=== PATIENT | male | born 1995 | race Caucasian/White ===

== ENCOUNTER 2017-05-12 17:10 | Emergency (ER) | payer SELFPAY ==
[2017-05-12] MEDS ORDERED: Ondansetron ODT 4 MG TAB ONE (17:33)
== END 2017-05-12 17:51 | disposition home or self-care (01) ==
LOC: MADERS 17:10
DX: K52.9 Noninfective gastroenteritis and colitis, unspecified (principal); F17.210 Nicotine dependence, cigarettes, uncomplicated
CPT/HCPCS: 99283; Q0162

== ENCOUNTER 2017-08-24 16:23 | Emergency (ER) | payer OTHER, SELFPAY ==
[2017-08-24 17:00] LABS: Bilirubin Negative (Negative); Blood, Urine Negative (Negative); Glucose, Urine (Dipstick) Negative (Negative); Leukocyte Negative (Negative); Nitrite Negative (Negative); Protein, Urine (Dipstick) Negative (Neg-Trace); Urobilinogen 0.2 mg/dL (0.2-1.0)
[2017-08-24 17:12] LABS: Clarity Hazy (Clear); Specific Gravity, Urine 1.031 (1.002-1.036)
== END 2017-08-24 17:20 | disposition home or self-care (01) ==
LOC: MADERS 16:23
DX: R11.10 Vomiting, unspecified (principal); G43.109 Migraine with aura, not intractable, without status migrainosus; F17.210 Nicotine dependence, cigarettes, uncomplicated
CPT/HCPCS: 81003; 99284

== ENCOUNTER 2018-01-11 09:31 | Emergency (ER) | payer OTHER ==
[2018-01-11] MEDS ORDERED: Ondansetron ODT 4 MG TAB ONE (09:46)
== END 2018-01-11 09:55 | disposition home or self-care (01) ==
LOC: MADERS 09:31
DX: R51 Headache (principal); F17.210 Nicotine dependence, cigarettes, uncomplicated
CPT/HCPCS: 99283; Q0162

== ENCOUNTER 2018-01-23 10:06 | Emergency (ER) | payer OTHER ==
[2018-01-23] MEDS ORDERED: Benzonatate 100 MG CAP ONE ×2 (10:27→10:28)
[2018-01-23] MEDS ORDERED: Ondansetron ODT 4 MG TAB ONE (10:28)
[2018-01-23] MEDS ORDERED: AMOXicillin 250 MG CAP ONE (10:28)
[2018-01-23] MEDS ORDERED: Diphenoxylate HCl/Atropine Tablet ONE (10:28)
[2018-01-23] MEDS ORDERED: Ondansetron HCl/PF 4 MG/2 ML Vial ONE (10:28)
== END 2018-01-23 10:36 | disposition home or self-care (01) ==
LOC: MADERS 10:06
DX: J02.9 Acute pharyngitis, unspecified (principal); F17.210 Nicotine dependence, cigarettes, uncomplicated
CPT/HCPCS: 99283; J2405; Q0162

== ENCOUNTER 2018-03-09 18:59 | Emergency (ER) | payer OTHER ==
--- NOTE | 2018-03-09 20:19 | RAD ---
PORTABLE CHEST: 03/09/18 HISTORY: Chest pain. Heart size and mediastinum are within normal limits. The lungs are clear of infiltrates. No significa nt bony findings. IMPRESSION: No active intrathoracic disease. POS: [facility]
[2018-03-09 20:51] LABS: #Basophils 0.1 thou/uL (0.0-0.2); #Eosinphils 0.1 thou/uL (0.0-0.7); #Lymphocytes 2.3 thou/uL (1.20-3.40); #Monocytes 0.5 thou/uL (0.11-0.59); #Neutrophils 4.4 thou/uL (1.40-6.50); %Basophils 1.2 % (0.0-1.0); %Eosinophils 1.3 % (0.0-10.0); %Lymphocytes 30.8 % (28.0-48.0); %Monocytes 7.2 % (0.0-4.0); %Neutrophils 59.4 % (31.0-61.0); Mean Corpuscular Hemoglobin 29.7 pg (25.0-35.0); Mean Corpuscular Volume 84.8 fl (77.0-87.0); Mean Platelet Volume 9.5 fL (7.4-10.4); Platelet Count 189 thou/uL (130-400); RBC Distribution Width 11.1 % (11.5-14.5); Red Blood Cell (RBC) Count 5.04 mill/uL (4.00-5.20); White Blood Cell (WBC) Count 7.3 thou/uL (4.8-10.8)
[2018-03-09 20:52] LABS: ALT (SGPT) 25 U/L (8-55); AST (SGOT) 18 U/L (5-34); Albumin 4.3 g/dL (3.5-5.0); Alkaline Phosphatase 49 U/L (Less than 750); Anion Gap 15 mmol/L (10-20); BUN (Urea Nitrogen) 20 mg/dL (8.9-20.6); Bilirubin, Total 0.4 mg/dL (0.2-1.2); Calc. Creatinine Clearance 0 mL/min (70-130); Calcium 9.4 mg/dL (7.8-10.44); Carbon Dioxide 26 mmol/L (22-29); Chloride 104 mmol/L (98-107); Estimated GFR-MDRD Greater than 90; Glucose 81 mg/dL (70-105); Potassium 3.9 mmol/L (3.5-5.1); Protein, Total 7.3 g/dL (6.0-8.3); Sodium 141 mmol/L (136-145)
[2018-03-09 20:59] LABS: CKMB 2.2 ng/mL (0-6.6); Troponin I Less than 0.010 ng/mL (< 0.028)
== END 2018-03-09 21:08 | disposition home or self-care (01) ==
LOC: MADERS 18:59
DX: K21.9 Gastro-esophageal reflux disease without esophagitis (principal); R55 Syncope and collapse; F17.210 Nicotine dependence, cigarettes, uncomplicated
CPT/HCPCS: 36415; 71045; 80053; 82553; 84484; 85025; 93005

== ENCOUNTER 2018-04-18 08:33 | Emergency (ER) | payer OTHER ==
[2018-04-18] MEDS ORDERED: Naproxen 500 MG TAB ONE (08:54)
== END 2018-04-18 09:00 | disposition home or self-care (01) ==
LOC: MADERS 08:33
DX: M54.5 Low back pain (principal)
CPT/HCPCS: 99283

== ENCOUNTER 2018-04-25 15:20 | Emergency (ER) | payer OTHER | END 2018-04-25 17:32 | disposition home or self-care (01) | LOC: MADERS 15:20 | DX: B00.1 Herpesviral vesicular dermatitis (principal); Z87.891 Personal history of nicotine dependence | CPT/HCPCS: 99282 ==

== ENCOUNTER 2018-06-02 10:48 | Emergency (ER) | payer OTHER ==
[2018-06-02] MEDS ORDERED: Naproxen 500 MG TAB ONE (11:11)
[2018-06-02] MEDS ORDERED: Acetaminophen 500 MG TAB ONE (11:11)
== END 2018-06-02 11:20 | disposition home or self-care (01) ==
LOC: MADERS 10:48
DX: S46.912A Strain of unspecified muscle, fascia and tendon at shoulder and upper arm level, left arm, initial encounter (principal); X58.XXXA Exposure to other specified factors, initial encounter
CPT/HCPCS: 99282

== ENCOUNTER 2018-06-11 08:12 | Emergency (ER) | payer OTHER ==
[2018-06-11] MEDS ORDERED: Ketorolac Tromethamine 60 MG/2 ML VIAL ONE (08:53)
== END 2018-06-11 09:10 | disposition home or self-care (01) ==
LOC: MADERS 08:12
DX: G43.909 Migraine, unspecified, not intractable, without status migrainosus (principal)
CPT/HCPCS: 96372; J1885

== ENCOUNTER 2018-06-27 11:21 | Emergency (ER) | payer OTHER ==
[2018-06-27] MEDS ORDERED: Ketorolac Tromethamine 60 MG/2 ML VIAL ONE (11:40)
[2018-06-27] MEDS ORDERED: cefTRIAXone\\ROCEPHIN 1 GM VIAL ONE (11:54)
== END 2018-06-27 11:45 | disposition home or self-care (01) ==
LOC: MADERS 11:21
DX: M79.621 Pain in right upper arm (principal)
CPT/HCPCS: 96372; J0696; J1885

== ENCOUNTER 2018-08-16 09:49 | Emergency (ER) | payer OTHER, SELFPAY | END 2018-08-16 11:46 | disposition home or self-care (01) | LOC: MADERS 09:49 | DX: T70.0XXA Otitic barotrauma, initial encounter (principal); F17.210 Nicotine dependence, cigarettes, uncomplicated | CPT/HCPCS: 99283 ==

== ENCOUNTER 2018-09-01 10:54 | Emergency (ER) | payer OTHER, SELFPAY ==
[2018-09-01] MEDS ORDERED: Ondansetron ODT 4 MG TAB ONE (11:11)
== END 2018-09-01 11:15 | disposition home or self-care (01) ==
LOC: MADERS 10:54
DX: R11.2 Nausea with vomiting, unspecified (principal); H93.19 Tinnitus, unspecified ear; F17.210 Nicotine dependence, cigarettes, uncomplicated
CPT/HCPCS: 99283; Q0162

== ENCOUNTER 2018-09-08 14:29 | Emergency (ER) | payer SELFPAY ==
[2018-09-08] MEDS ORDERED: Ondansetron ODT 4 MG TAB ONE (15:09)
[2018-09-08 15:20] LABS: #Basophils 0.1 thou/uL (0.0-0.2); #Eosinphils 0.1 thou/uL (0.0-0.7); #Lymphocytes 1.8 thou/uL (1.20-3.40); #Monocytes 0.4 thou/uL (0.11-0.59); #Neutrophils 4.9 thou/uL (1.40-6.50); %Basophils 1.4 % (0.0-1.0); %Eosinophils 2.1 % (0.0-10.0); %Lymphocytes 24.2 % (28.0-48.0); %Monocytes 5.2 % (0.0-4.0); %Neutrophils 67.2 % (31.0-61.0); Hemoglobin 15.7 g/dL (14.0-18.0); Mean Corpuscular HGB CONC 34.4 g/dL (32.0-36.0); Mean Corpuscular Hemoglobin 30.1 pg (25.0-35.0); Mean Corpuscular Volume 87.6 fL (78.0-98.0); Mean Platelet Volume 10.4 fL (7.4-10.4); Platelet Count 205 thou/uL (130-400); RBC Distribution Width 11.3 % (11.5-14.5); White Blood Cell (WBC) Count 7.3 thou/uL (4.8-10.8)
[2018-09-08 15:36] LABS: ALT (SGPT) 22 U/L (8-55); AST (SGOT) 15 U/L (5-34); Albumin 4.5 g/dL (3.5-5.0); Alkaline Phosphatase 60 U/L (Less than 750); Anion Gap 14 mmol/L (10-20); BUN (Urea Nitrogen) 19 mg/dL (8.9-20.6); Bilirubin, Total 0.4 mg/dL (0.2-1.2); Calc. Creatinine Clearance 0 mL/min (70-130); Calcium 9.7 mg/dL (7.8-10.44); Carbon Dioxide 26 mmol/L (22-29); Chloride 106 mmol/L (98-107); Estimated GFR-MDRD Greater than 90; Globulin 3.2 g/dL (2.4-3.5); Glucose 135 mg/dL (70-105); Lipase 27 U/L (8-78); Potassium 3.9 mmol/L (3.5-5.1); Protein, Total 7.7 g/dL (6.0-8.3); Sodium 142 mmol/L (136-145)
== END 2018-09-08 16:26 | disposition home or self-care (01) ==
LOC: MADERS 14:29
DX: R11.0 Nausea (principal); R10.9 Unspecified abdominal pain; F17.210 Nicotine dependence, cigarettes, uncomplicated
CPT/HCPCS: 36415; 80053; 83690; 85025; Q0162

== ENCOUNTER 2018-09-09 17:42 | Emergency (ER) | payer SELFPAY ==
[2018-09-09] MEDS ORDERED: Dicyclomine 10 MG CAP ONE (19:39)
== END 2018-09-09 19:44 | disposition home or self-care (01) ==
LOC: MADERS 17:42
DX: R10.9 Unspecified abdominal pain (principal); F17.210 Nicotine dependence, cigarettes, uncomplicated

== ENCOUNTER 2018-09-29 14:01 | Emergency (ER) | payer SELFPAY | END 2018-09-29 14:25 | disposition home or self-care (01) | LOC: MADERS 14:01 | DX: B34.9 Viral infection, unspecified (principal); F17.210 Nicotine dependence, cigarettes, uncomplicated | CPT/HCPCS: 99281 ==

== ENCOUNTER 2019-11-02 12:32 | Emergency (ER) | payer SELFPAY ==
[2019-11-02] MEDS ORDERED: Ondansetron PF 4 MG/2 ML Vial ONE (13:57)
[2019-11-02] MEDS ORDERED: Loperamide HCl 2 MG CAP ONE (13:57)
[2019-11-02] MEDS ORDERED: Ketorolac Tromethamine 30 MG/ML VIAL ONE (13:57)
== END 2019-11-02 14:58 | disposition home or self-care (01) ==
LOC: MADERS 12:32
DX: E86.0 Dehydration (principal); R11.2 Nausea with vomiting, unspecified; R19.7 Diarrhea, unspecified; F17.210 Nicotine dependence, cigarettes, uncomplicated
CPT/HCPCS: 96361; 96374; 96375; J1885; J2405

== ENCOUNTER 2020-08-09 07:51 | Emergency (ER) | payer SELFPAY ==
[2020-08-09] MEDS ORDERED: Boostrix 0.5 ML VIAL ONE (08:53)
[2020-08-09] MEDS ORDERED: Ondansetron ODT 4 MG TAB ONE (08:53)
[2020-08-09] MEDS ORDERED: Ketorolac Tromethamine 30 MG/ML VIAL ONE (08:53)
[2020-08-09 09:26] LABS: #Basophils 0.1 thou/uL (0.0-0.2); #Eosinphils 0.1 thou/uL (0.0-0.7); #Lymphocytes 1.3 thou/uL (1.20-3.40); #Monocytes 0.6 thou/uL (0.11-0.59); #Neutrophils 7.4 thou/uL (1.40-6.50); %Lymphocytes 13.9 % (21.0-51.0); %Monocytes 6.3 % (0.0-10.0); %Neutrophils 77.7 % (42.0-75.0); Mean Corpuscular HGB CONC 32.5 g/dL (32.0-36.0); Mean Corpuscular Hemoglobin 27.9 pg (27.0-31.0); Mean Corpuscular Volume 85.6 fL (78.0-98.0); Mean Platelet Volume 10.1 fL (7.4-10.4); Platelet Count 213 thou/uL (130-400); RBC Distribution Width 11.8 % (11.5-14.5); Red Blood Cell (RBC) Count 5.37 mill/uL (4.70-6.10); White Blood Cell (WBC) Count 9.5 thou/uL (4.8-10.8)
[2020-08-09 09:49] LABS: ALT (SGPT) 40 U/L (8-55); AST (SGOT) 24 U/L (5-34); Albumin 4.1 g/dL (3.5-5.0); Alkaline Phosphatase 62 U/L (40-110); Anion Gap 16 mmol/L (10-20); BUN (Urea Nitrogen) 16 mg/dL (8.9-20.6); Bilirubin, Total 0.7 mg/dL (0.2-1.2); Calc. Creatinine Clearance 0 mL/min (70-130); Calcium 8.9 mg/dL (7.8-10.44); Carbon Dioxide 24 mmol/L (22-29); Chloride 104 mmol/L (98-107); Estimated GFR-MDRD Greater than 90; Globulin 3.5 g/dL (2.4-3.5); Glucose 103 mg/dL (70-105); Potassium 4.1 mmol/L (3.5-5.1); Protein, Total 7.6 g/dL (6.0-8.3); Sodium 140 mmol/L (136-145)
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
== END 2020-08-09 10:10 | disposition home or self-care (01) ==
LOC: MADERS 07:51
DX: T14.8XXA Other injury of unspecified body region, initial encounter (principal); S40.812A Abrasion of left upper arm, initial encounter; S80.212A Abrasion, left knee, initial encounter; S50.812A Abrasion of left forearm, initial encounter; S30.811A Abrasion of abdominal wall, initial encounter; Z87.891 Personal history of nicotine dependence; V89.2XXA Person injured in unspecified motor-vehicle accident, traffic, initial encounter
CPT/HCPCS: 36415; 80053; 85025; 90471; 90715; 96372; J1885; Q0162